=== PATIENT | male | born 1960 | race Caucasian/White ===

== ENCOUNTER 2016-09-24 23:03 | Inpatient (IN) | payer OTHER ==
[2016-09-24] MEDS ORDERED: NITROGLYCERINE 0.4 MG TAB SL STA (23:25)
[2016-09-24] MEDS ORDERED: NITROGLYCERINE 2 % OINTMENT PACK TOP STA (23:25)
[2016-09-24 23:46] LABS: AUTOMATED BASOPHIL 1.1 % (0-2); AUTOMATED EOSINOPHIL 4.2 % (0-5); AUTOMATED LYMPH 39.5 % (17-44); AUTOMATED NEUTROPHIL 43.2 % (45-76)
[2016-09-24 23:51] LABS: BLOOD UREA NITROGEN 16 MG/DL (9-20); CALCIUM 8.8 MG/DL (8.4-10.2); CALCULATED OSMOLALITY 277 MOs/Kg (270-290); CHLORIDE 103 mEq/L (98-107); GLUCOSE 186 MG/DL (70-99); SODIUM LEVEL 141 mEq/L (137-146); TOTAL PROTEIN 6.9 G/DL (6.3-8.2)
--- NOTE | 2016-09-25 00:10 | DIRPT ---
CLINICAL DATA: Subacute onset of generalized chest pain, radiating between the shoulder blades. Shortness of breath. Initial encounter. EXAM: CHEST 2 VIEW COMPARISON: Chest radiograph performed 10/29/2009 FINDINGS: The lungs are well-aerated and clear. There is no evidence of focal opacification, pleural effusion or pneumothorax. The heart is normal in size; the mediastinal contour is within normal limits. No acute osseous abnormalities are seen. IMPRESSION: No acute cardiopulmonary process seen. Electronically Signed By: Juan Ramsay M.D. On: 09/25/2016 00:08
--- NOTE | 2016-09-25 00:25 | EDPRACDOC ---
- General Information Chief Complaint: Chest Pain Stated Complaint: CHEST PAIN Time Seen by Provider: 09/24/16 23:19 Information Source: Patient Mode of Arrival: Car Allergies/Adverse Reactions: Allergies Allergy/AdvReac Type Severity Reaction Status Date / Time No Known Allergies Allergy Verified 09/24/16 23:12 - History of Present Illness Onset: 2 weeks HPI: PT PRESENTS WITH CHEST PAIN OFF AND ON FOR THE LAST FEW WEEKS BUT PERSISTENT TODAY. HAS TAKEN HOME NITROGLYCERIN WITH PARTIAL RELIEF. LAST CARDIAC STENTING WAS IN OCTOBER OF 2015. Chest Pain Location: Reports: Substernal Pain Radiation: Reports: Back Symptoms Occur: Reports: At Rest Cardiac Risk Factors: Reports: Hyperlipidemia, Hypertension Cardiac History of: Reports: [place], Stent Medications within 24 Hours: Reports: Aspirin, Nitro Prehospital Care: Reports: SL NTG, ASA Pain Came On: Reports: Suddenly Pain Status: Present Now Pain Description: Reports: Pressure Pain Severity: Moderate Pain Improves With: Reports: Nitroglycerin, Rest Associated Signs and Symptoms: Reports: SOB. Denies: Palpitations, Nausea, Vomiting ED Past Medical History - History Reviewed Yes Nurses notes reviewed and agree except as marked - Patient Medical History Cardiac History: Reports: Heart Attack (3 stents), Hypercholesterolemia - Social Medical History Lives With: Spouse Lives In: Home EDM Review of Systems - Review of Systems ROS Negative Except as Marked: Yes All systems reviewed and were negative except as marked Constitutional: Fatigue. negative: Fever Respiratory: negative: Shortness of Breath Cardiovascular: Chest Pain Gastrointestinal: negative: Pain, Vomiting - Physical Exam Constitutional: Alert Oriented to: Time, Person, Place Last recorded Vital Signs: Last Vital Signs Temp 98.1 F 09/24/16 23:12 Pulse 78 09/24/16 23:12 Resp 20 09/24/16 23:12 BP 147/67 09/24/16 23:12 Pulse Ox 97 09/24/16 23:12 Oxygen Pulse Oxygen Saturation 97 O2 Device Oxygen Flow Rate Fraction of Inspired Oxygen ( FIO2) - HEENT Head: negative: Deformity, Laceration Eye Exam: negative: Conjunctival Injection, Pale Conjunctiva Oropharynx: negative: Membranes Dry Nose: negative: Congestion, Discharge Neck: negative: Limited ROM - Respiratory/Cardiovascular Respiratory: Normal - CTA. negative: Accessory Muscle Use, Diminished, Tachypnea Cardiovascular: negative: Bradycardia, Tachycardia, Irregular - GI Auscultation: Normal Palpation: Normal Tenderness: Non tender - Integumentary Skin: Warm, Dry. negative: Rash - Neurologic Memory Impaired: Normal Motor Function: Normal Mood Description: Anxious, Appropriate Thought: Coherent Perception: Normal ED Chest Pain Exam - Respiratory/Cardiovascular Chest Palpation: negative: Tender, Reproduces Pain - Action Patient received Aspirin within last 24 hours?: Yes ASA given in the ED: No Aspirin therapy held due to: Other-specify below* (TOOK ASPIRIN AND PLAVIX TODAY ) - Results 09/24/16 23:25 09/24/16 23:25 WBC 4.8 xk/uL (3.8-10.8) 09/24/16 23:25 RBC 4.52 xM/uL (4.70-6.10) L 09/24/16 23:25 Hgb 13.9 g/dL (14.0-18.0) L 09/24/16 23:25 Hct 41.1 % (42-52) L 09/24/16 23:25 MCV 91 fL (80-94) 09/24/16 23:25 MCH 30.7 pg (27-32) 09/24/16 23:25 MCHC 33.8 g/dl (33-36) 09/24/16 23:25 RDW 14.2 % (11.5-14.5) 09/24/16 23:25 Plt Count 146 xk/uL (130-400) 09/24/16 23:25 MPV 8.0 fL (7.4-10.4) 09/24/16 23:25 Neut % (Auto) 43.2 % (45-76) L 09/24/16 23:25 Lymph % (Auto) 39.5 % (17-44) 09/24/16 23:25 Bond % (Auto) 12.0 % (3-10) H 09/24/16 23:25 Eos % (Auto) 4.2 % (0-5) 09/24/16 23:25 Baso % (Auto) 1.1 % (0-2) 09/24/16 23:25 Absolute Neuts (auto) 2.06 xk/uL (1.7-8.2) 09/24/16 23:25 Absolute Lymphs (auto) 1.87 xk/uL (0.65-4.75) 09/24/16 23:25 PT 10.0 SEC (9.2-11.2) 09/24/16 23:25 INR 1.0 09/24/16 23:25 APTT 23.0 SEC (22-35) 09/24/16 23:25 Sodium 141 mEq/L (137-146) 09/24/16 23:25 Potassium 3.8 mEq/L (3.5-5.1) 09/24/16 23:25 Chloride 103 mEq/L (98-107) 09/24/16 23:25 Carbon Dioxide 27 mMOL/L (22-33) 09/24/16 23:25 Anion Gap 15 mEq/L (8-16) 09/24/16 23:25 BUN 16 MG/DL (9-20) 09/24/16 23:25 Creatinine 0.90 MG/DL (0.66-1.25) 09/24/16 23:25 Estimated GFR (MDRD) > 60 mL/min (>=60) 09/24/16 23:25 Glucose 186 MG/DL (70-99) H 09/24/16 23:25 Calculated Osmolality 277 MOs/Kg (270-290) 09/24/16 23:25 Calcium 8.8 MG/DL (8.4-10.2) 09/24/16 23:25 Total Bilirubin 0.4 MG/DL (0.2-1.3) 09/24/16 23:25 AST 22 IU/L (17-59) 09/24/16 23:25 ALT 33 IU/L (21-72) 09/24/16 23:25 Alkaline Phosphatase 91 IU/L (38-126) 09/24/16 23:25 Troponin I 0.06 ng/mL (<.04) 09/24/16 23:25 Total Protein 6.9 G/DL (6.3-8.2) 09/24/16 23:25 Albumin 4.0 G/DL (3.5-5.0) 09/24/16 23:25 Lab Results 09/24/16 09/24/16 09/24/16 23:25 23:25 23:25 WBC 4.8 RBC 4.52 L Hgb 13.9 L Hct 41.1 L MCV 91 MCH 30.7 MCHC 33.8 RDW 14.2 Plt Count 146 MPV 8.0 Neut % (Auto) 43.2 L Lymph % (Auto) 39.5 Bond % (Auto) 12.0 H Eos % (Auto) 4.2 Baso % (Auto) 1.1 Absolute Neuts (auto) 2.06 Absolute Lymphs (auto) 1.87 PT 10.0 INR 1.0 APTT 23.0 Sodium 141 Potassium 3.8 Chloride 103 Carbon Dioxide 27 Anion Gap 15 BUN 16 Creatinine 0.90 Estimated GFR (MDRD) > 60 Glucose 186 H Calculated Osmolality 277 Calcium 8.8 Total Bilirubin 0.4 AST 22 ALT 33 Alkaline Phosphatase 91 Troponin I 0.06 Total Protein 6.9 Albumin 4.0 Laboratory Results - last 24 hr 09/24/16 09/24/16 09/24/16 23:25 23:25 23:25 WBC 4.8 RBC 4.52 L Hgb 13.9 L Hct 41.1 L MCV 91 MCH 30.7 MCHC 33.8 RDW 14.2 Plt Count 146 MPV 8.0 Neut % (Auto) 43.2 L Lymph % (Auto) 39.5 Bond % (Auto) 12.0 H Eos % (Auto) 4.2 Baso % (Auto) 1.1 Absolute Neuts (auto) 2.06 Absolute Lymphs (auto) 1.87 PT 10.0 INR 1.0 APTT 23.0 Sodium 141 Potassium 3.8 Chloride 103 Carbon Dioxide 27 Anion Gap 15 BUN 16 Creatinine 0.90 Estimated GFR (MDRD) > 60 Glucose 186 H Calculated Osmolality 277 Calcium 8.8 Total Bilirubin 0.4 AST 22 ALT 33 Alkaline Phosphatase 91 Troponin I 0.06 Total Protein 6.9 Albumin 4.0 Laboratory Results 09/24/16 23:25 09/24/16 23:25 - EKG EKG #1 EKG Time: 23:09 -: Yes EKG interpreted by me Rate: bpm: 77 Rhythm: NSR Block: None ST: Nonsp - Departure Yes I personally saw and evaluated the patient. Disposition: Admit IP To This Hospital Condition: Stable Final Diagnosis: Chest pain Instructions: Chest Pain (ED), Chest Wall Pain Decision to Admit Time: 00:35 Decision to admit date: 09/25/16 Decision to admit: from ED
[2016-09-25] MEDS ORDERED: NITROGLYCERINE 0.4 MG TAB SL PRN (00:53)
--- NOTE | 2016-09-25 00:56 | HISTPHYS ---
- Chief Complaint chest pain - History of Present Illness PRIMARY CARE PROVIDER: Dr. Kaleigh Gandara at [facility] HPI: The patient is a 55 yo man with coronary artery disease who presents with chest pain. Although he has had chest pain intermittently over the last 2 weeks, he had worsening pain. He has requred more and more nitroglycerin. He has noticed shortness of breath and chest pain with exertion, and especially with climbing stairs. The most recent episode of chest pain a few hours before arrival actually started when he was sitting. Onset: Has intermittent chest pain x 2 weeks. Today the chest pain would not go away. Duration: intermittent. Location: substernal. Radiation: to shoulders and back. Character: Up to 8/10 at times. Burning sensation. Tightness. Alleviated by: Nothing. Exacerbated by: Exertion. Associated Symptoms: Shortness of breath. Diaphoresis occasionally. Previously he would have some relief with burping but not for the more recent chest pain. Chronic cough. No wheezing. Shortness of breath. Chest pain and palpitations. Sometimes his heart "does summersaults"; when he had that sensation, he would take his pulse and during that time his pulse would stop, and he is concerned about this. No headache or focal weakness. Except: occasional weakness and heaviness in his arms when he exerts himself; has happened a few times in the last few months. He states that when he had his heart attack previously, that is how his arms felt. Treatments: none at home except usual medications. Nitroglycerin relieved some episodes of chest pain but not the most recent one. He has had to take nitroglycerin more frequently and for more times over the last week than he has ever used it before. PMH: [place] in 2009. Cardiac catheterization: 2009 had 2 stents at [place]. 10/2015 had a 3rd stent at the [facility]. Has not been told he has hypertension, but does take blood pressure medications for his heart. Hyperlipidemia Has some pre-diabetes but has been improving Smoker: 1 ppd. Started 11 yo. - Medical History Cardiac History: Reports: Coronary Artery Disease (first diagnosed at 36 yo), Heart Attack (2009. 3 stents), Cardiac Catheterization (2009 had 2 stents at [place]. 10/2015 stent#3 at [facility]), Hypercholesterolemia Respiratory History: Reports: COPD (moderate. Uses inhalers.) GI/ History: Reports: Kidney Stones Musculoskeletal History: Reports: Arthritis - Surgical History Reports: Cardiac Catheterization (2009 had 2 stents at [place]. 10/2015 stent# 3 at [facility]), Other (Skin cancer removal) - Medictions/Allergies Allergies No Known Allergies Allergy (Verified 09/24/16 23:12) Current Medication List: Reviewed - Family History Reports: Diabetes (Grandmother), Cancer (MGM: pancreatic cancer. Maternal great uncle colon cancer.), Cardiac Disorders (Father: first [place]@37yo, @59yo. PGF : [place]. Brother: [place] early 40s.), Respiratory Disorders (Mother: COPD, smoker.) - Social History Travel Outside of US in the Last 3 Months?: No Smoking Status: Heavy tobacco smoker (5 or more cigarettes/day or daily pipe/ cigar) (1 ppd. Started age 11yo.) Social History: Denies: Alcohol Use, Substance Use Disorder - Review of Systems GENERAL: No Fever, chills, or diaphoresis. Positive for fatigue/malaise. HEENT: No ear pain or discharge. No nasal discharge or bleeding. No throat pain or swelling. No eye pain or eye redness. RESPIRATORY: Chronic cough. No wheezing. Shortness of breath. CARDIOVASCULAR: Chest pain and palpitations. GI: No abdominal pain, nausea, vomiting, diarrhea, constipation, or bloody stool. NEUROLOGICAL: No headache or focal weakness. Except: occasional weakness and heaviness in his arms when he exerts himself; has happened a few times in the last few months. He states that when he had his heart attack previously, that is how his arms felt. INTEGUMENT: no rashes, itching, or lesions. LYMPHATIC SYSTEM: no lymph node swelling or pain. MUSCULOSKELETAL: no pain or joint swelling. GENITOURINARY: No dysuria or hematuria. ENDOCRINE: Chronic polyuria but no polydipsia. HEME: No chronic anemia, bleeding. Positive for easy bruising. - Physical Exam Vital Signs: Initial Vitals Temperature 98.1 F 09/24/16 23:12 Pulse Rate 78 09/24/16 23:12 Respiratory Rate 20 09/24/16 23:12 Blood Pressure 147/67 09/24/16 23:12 Pulse Oxygen Saturation 97 09/24/16 23:12 Weight: 95.2 kg Height: 6' BMI: 28.5 - Other Exam Other Exam Findings: GENERAL: Ill-appearing, well nourished, no acute distress. HEENT: Normocephalic, atraumatic; pupils equal and round. Nares patent, without discharge or bleeding. No oropharyngeal lesions or erythema. Mucous membranes are dry. NECK: is supple, no masses, trachea midline. RESPIRATORY: Clear to auscultation bilaterally. Chest wall movements are symmetric. No use of accessory muscles to breathe. Minimal bilateral wheezing. No rales, rhonchi. CARDIOVASCULAR: Normal S1, S2. No murmurs, rubs, or gallops. PMI non-displaced. Carotids: no carotid bruits. No bradycardia or tachycardia. DP pulses 2+ bilaterally. GI: soft, nontender, non-distended, normal active bowel sounds. No hepatosplenomegaly. INTEGUMENT: Clean, dry, and intact. No rashes. No lesions. MUSCULOSKELETAL: Moving all extremities. No cyanosis. No clubbing. Edema: none bilaterally. NEUROLOGICAL: Cranial nerves 2-12 grossly intact. Motor 5/5 throughout. Reflexes : 2+ bilaterally. Babinski: toes downgoing bilaterally. Intact Finger to nose. Sensory grossly intact to light touch. Intact rapid alternating movements bilaterally. No pronator drift. PSYCHIATRIC: Fully oriented. Normal and appropriate affect. LYMPHATIC: No cervical lymphadenopathy. No supraclavicular lymphadenopathy. - Lab Results Laboratory Results - last 24 hr 09/24/16 09/24/16 09/24/16 23:25 23:25 23:25 WBC 4.8 RBC 4.52 L Hgb 13.9 L Hct 41.1 L MCV 91 MCH 30.7 MCHC 33.8 RDW 14.2 Plt Count 146 MPV 8.0 Neut % (Auto) 43.2 L Lymph % (Auto) 39.5 [place] % (Auto) 12.0 H Eos % (Auto) 4.2 Baso % (Auto) 1.1 Absolute Neuts (auto) 2.06 Absolute Lymphs (auto) 1.87 PT 10.0 INR 1.0 APTT 23.0 Sodium 141 Potassium 3.8 Chloride 103 Carbon Dioxide 27 Anion Gap 15 BUN 16 Creatinine 0.90 Estimated GFR (MDRD) > 60 Glucose 186 H Calculated Osmolality 277 Calcium 8.8 Total Bilirubin 0.4 AST 22 ALT 33 Alkaline Phosphatase 91 Troponin I 0.06 Total Protein 6.9 Albumin 4.0 - Diagnostic Findings DIAGNOSTIC DATA: EK bpm. normal sinus rhythm. Nonspecific ST abnormality. Minimal ST depression in lead V3. Reviewed EKG personally. IMAGING: Chest x-ray, viewed personally: EXAM: CHEST 2 VIEW COMPARISON: Chest radiograph performed 10/29/2009 FINDINGS: The lungs are well-aerated and clear. There is no evidence of focal opacification, pleural effusion or pneumothorax. The heart is normal in size; the mediastinal contour is within normal limits. No acute osseous abnormalities are seen. IMPRESSION: No acute cardiopulmonary process seen. - Assessment (1) Chest pain R07.9 - CHEST PAIN, UNSPECIFIED Acute Present on Admission: Yes Has known coronary artery disease with 3 stents, most recent stent placed 2015 at [facility]. Plan: Obtain cardiac enzymes x 3. Place patient on telemetry. Give patient oxygen, aspirin. Give nitroglycerin, and morphine as needed for chest pain. Give statin. Stress test has been ordered for the morning. Patient has been advised, if the stress test is negative, to follow up with the primary care provider for evaluation of other potential causes of the chest pain. (2) Palpitations R00.2 - PALPITATIONS Acute Present on Admission: Yes Plan: Telemetry. (3) Shortness of breath R06.02 - SHORTNESS OF BREATH Acute Present on Admission: Yes O2 by NC (4) Tobacco abuse Z72.0 - TOBACCO USE Acute Present on Admission: Yes Counseled to quit. Patient reported he had a prescription for Chantix and was planning to start the Chantix once he gets home. Case Care Discussed with: Patient, Nursing Staff
[2016-09-25] MEDS ORDERED: TEMAZEPAM 15 MG CAP PO PRN (02:39)
[2016-09-25] MEDS ORDERED: GUAIFEN 100 MG-DEXTROMETH 10 MG PER 5 ML PO PRN (02:39)
[2016-09-25] MEDS ORDERED: ACETAMINOPHEN 325 MG SUPP PR PRN (02:39)
[2016-09-25] MEDS ORDERED: ACETAMINOPHEN 325 MG/TAB TABLET PO PRN (02:39)
[2016-09-25] MEDS ORDERED: Docusate Sodium 100 MG CAP PO PRN (02:39)
[2016-09-25] MEDS ORDERED: SENNA CONCENTRATE TAB PO PRN (02:39)
[2016-09-25] MEDS ORDERED: MORPHINE 2 MG/ML INJECTION IV PRN (02:39)
[2016-09-25] MEDS ORDERED: ONDANSETRON HCL 4 MG/2 ML VIAL IV PRN (02:39)
[2016-09-25] MEDS ORDERED: BENZONATATE 100 MG PERLES PO PRN (02:39)
[2016-09-25] MEDS ORDERED: SIMETHICONE 80 MG TAB PO PRN (02:39)
[2016-09-25] MEDS ORDERED: PROMETHAZINE 25 MG/ML VIAL IV PRN (02:39)
[2016-09-25] MEDS ORDERED: BISACODYL 5 MG TAB PO PRN (02:39)
[2016-09-25] MEDS ORDERED: Pharmacy Order Set Alert SCH (03:00)
[2016-09-25] MEDS ORDERED: ENOXAPARIN 40 MG/0.4 ML PFS SQ SCH (03:00)
[2016-09-25] MEDS ORDERED: Vaccine Screening Complete SCH (04:00)
[2016-09-25 07:30] LABS: MPV 7.6 fL (7.4-10.4)
[2016-09-25 07:36] LABS: BLOOD UREA NITROGEN 13 MG/DL (9-20); CALCIUM 8.6 MG/DL (8.4-10.2); CALCULATED OSMOLALITY 271 MOs/Kg (270-290); CHLORIDE 106 mEq/L (98-107); GLUCOSE 107 MG/DL (70-99); LDL (calc.) 83.6 MG/DL (<100); SODIUM LEVEL 141 mEq/L (137-146); VLDL (calc.) 15.4 MG/DL (5-40)
[2016-09-25] MEDS ORDERED: ERGOCALCIFEROL 2000 UNIT PO SCH (09:00)
[2016-09-25] MEDS: ATORVASTATIN 40 MG TAB PO SCH (10:06)
[2016-09-25] MEDS: ASPIRIN (CHEWABLE) 81 MG TAB PO SCH (10:06)
[2016-09-25] MEDS: METOPROLOL TARTRATE 25 MG TAB PO SCH ×2 (10:07→22:34)
[2016-09-25] MEDS: CLOPIDOGREL 75 MG TAB PO SCH (10:10)
[2016-09-25] MEDS: CHOLECALCIFEROL 1000 UNITS TAB PO SCH (10:11)
[2016-09-25] MEDS: LISINOPRIL 2.5 MG TAB PO SCH (10:11)
--- NOTE | 2016-09-25 13:59 | PCM.CARDCO ---
Consultation Date: 09/25/16 Requesting Physician: Curly Baldwin (unst angina) Consulting Doctor: Aaron Malcolm Travel Outside of US in the Last 3 Months?: No Consultation Note: History of Present Illness: Pt is a 55 yo WM, has hx of CAD going back to stent of RCA and LAD in 2009 at [facility], subsequently established care at [facility], where he underwent a second coronary stent procedure in 10/2015 for progressive angina, with another Xience SHAWN placed for restenosis at edge of prior stent. He is followed there for CArdiology primarily by FRANCISCA Hoyos He was free of sx until June , when he began having occasional episodes of chest discomfort, typically onset in evening after work, once during exertion at work, and has taken 6-10 sl NTG last couple months, always with prompt relief. Last evening, had more severe/more prolonged chest discomfort unrelieved by sl NTG x2, prompting his eval here and admission. Started on topical nitrate and Lovenox. He has had some exertional dyspnea in recent weeks, and occasional palpitations perceived as "somersaults". No sustained rapid heart action. Pt indicates recent chest discomfort is just like prior anginal sx in past. Past Medical History: CAD, with stents to LAD and RCA, most recent in Oct 2015, as noted. Allergies No Known Allergies Allergy (Verified 09/24/16 23:12) Home Medications Albuterol Sulfate MDI [Proventil HFA] 2 puff PO QID 09/25/16 Aspirin 81 mg PO DAILY 09/25/16 Atorvastatin Calcium 40 mg PO DAILY 09/25/16 Clopidogrel Bisulfate [Plavix] 75 mg PO DAILY 09/25/16 Ergocalciferol (Vitamin D2) [Vitamin D] 2,000 unit PO DAILY 09/25/16 Lisinopril 2.5 mg PO DAILY 09/25/16 Metoprolol Tartrate 25 mg PO BID 09/25/16 Nitroglycerin Sublingual Tab [NTG (NitroStat Sublingual Tab)] 0.4 mg SL Q10MIN PRN 09/25/16 Family History: + for CAD Social History: Traveled outside the [place] in the last 3 months? No \\Heavy tobacco smoker (5 or more cigarettes/day or daily pipe/cigar) Works for [employer], involves lifting. Re-, 2 kids, 3 stepchildren Review of Systems: 10- system ROS, nothing in addition. No TIA./CVA, melena, hematochezia. Physical Examination: Temperature: 98.0 F (09/25/16 12:45)HR: 80 (09/25/16 12:45)RR: 20 (09/25/16 12: 45)BP: 110/64 (09/25/16 12:45) SAT:98 (09/25/16 12:45) [] Physical Exam GEN: WDWN, in NAD VS: as above HEENT: neck veins flat, carotids normal, no bruit CHEST: clear, non-tender COR: RR, normal s1,s2, no murmur, gallop, rub ABD: soft, non-tender, no organomegaly or mass EXTREM: pulses symmetrically wnl, no edema SKIN: warm, dry NEURO: normal mental status, no focal motor deficit. LAB/DI: [] Laboratory Tests 09/24/16 09/24/16 09/24/16 23:25 23:25 23:25 WBC 4.8 Hgb 13.9 L Hct 41.1 L Plt Count 146 INR 1.0 Sodium Potassium Chloride Carbon Dioxide BUN Creatinine Estimated GFR (MDRD) AST 22 ALT 33 Alkaline Phosphatase 91 Troponin I 0.06 Triglycerides Cholesterol LDL Cholesterol, Calc HDL Cholesterol 09/25/16 09/25/16 09/25/16 03:28 06:49 06:49 WBC Hgb Hct Plt Count INR Sodium 141 Potassium 4.0 Chloride 106 Carbon Dioxide 26 BUN 13 Creatinine 0.80 Estimated GFR (MDRD) > 60 AST ALT Alkaline Phosphatase Troponin I 0.08 0.09 Triglycerides 77 Cholesterol 134 LDL Cholesterol, Calc 83.6 HDL Cholesterol 35.0 L EKG on adm: NSR, minor non-specific T wave abnormality today: NSR, inferior T inversion, similar to Oct 2015 IMPRESSION: unstable angina, with resting ST-T changes. - Recommendations REC: Rx for unstable angina, full dose Lovenox for now, con't ASA/Plavix, metoprolol - agree with add of topical nitrates - agree with Dr. Baldwin that definitive coronary angiographic eval is appropriate, would not trust stress test even if negative. For financial reasons, [facility] is preferred to carry this out. Suggest we contact OR in AM, see if we can arrange prompt angio re-eval there. Transfer if possible. If pt tolerates ambulation without chest discomfort, could be released home with add of long-acting nitrates, off work pending cath eval.
[2016-09-25] MEDS: NITROGLYCERINE TOP SCH (14:37)
[2016-09-25] MEDS: ENOXAPARIN 100 MG PFS SQ SCH (17:17)
[2016-09-26 04:45] VITALS: BMI 26.9
[2016-09-26 07:59] VITALS: TEMP 98.1
[2016-09-26] MEDS ORDERED: FLU VACCINE (Afluria) 0.5 ML DOSE IM ONE (08:00)
[2016-09-26] MEDS ORDERED: PNEUMOCOCCAL 0.5 ML VIAL IM ONE (08:00)
[2016-09-26] MEDS: ATORVASTATIN 40 MG TAB PO SCH (08:19)
[2016-09-26] MEDS: ASPIRIN (CHEWABLE) 81 MG TAB PO SCH (08:19)
[2016-09-26] MEDS: CHOLECALCIFEROL 1000 UNITS TAB PO SCH (08:19)
[2016-09-26] MEDS: CLOPIDOGREL 75 MG TAB PO SCH (08:19)
[2016-09-26] MEDS: LISINOPRIL 2.5 MG TAB PO SCH (08:20)
[2016-09-26] MEDS: METOPROLOL TARTRATE 25 MG TAB PO SCH (08:20)
[2016-09-26] MEDS: NITROGLYCERINE TOP SCH (08:21)
[2016-09-26] MEDS: ENOXAPARIN 100 MG PFS SQ SCH (08:28)
--- NOTE | 2016-09-26 08:59 | PCM.CARD ---
- Subjective Reason for visit: f/u unstable angina Subj: Pt experienced recurrent 1-2/10 discomfort last evening after ambulating in [place], same character as recent episodes, promptly relieved by rest and sl NTG. No recurrences since, no rest pain. No new dyspnea, nausea, palpitations. Contacted [facility], informed that [facility] ( [phone] has to put through order. Pt is followed primarily there by Dr. Kaleigh Eid in [facility] (ext [phone]). Cardiology ext is [phone], stress lab [phone]. [facility] to return my call. ADDENDUM: Bianka ESPINOSA from [facility] returned call, indicated wait time for cath at [facility] would be an unacceptable 6 weeks given instability of pt's symptoms. Suggested transfer to for cath/poss PCI, care to be covered by [facility] as emergency. Vital Signs: Last Vital Signs Temp 98.1 F 09/26/16 07:56 Pulse 66 09/26/16 08:20 Resp 18 09/26/16 07:56 BP 126/61 09/26/16 07:56 Pulse Ox 91 09/26/16 07:56 PE: Physical Exam GEN: WDWN, in NAD VS: as above HEENT: no JVD, carotids normal CHEST: clear COR: RR, no murmur gallop or rub ABD: no distention EXTREM: pulses normal, no edema SKIN: warm, dry NEURO: normal mental status, no focal motor deficit Lab/DI Results Reviewed: Laboratory Tests 09/24/16 09/25/16 09/25/16 23:25 03:28 06:49 Sodium Potassium BUN Creatinine Troponin I 0.06 0.08 0.09 09/25/16 06:49 Sodium 141 Potassium 4.0 BUN 13 Creatinine 0.80 Troponin I EKG this AM: NSR, tiny inferior Qs, T inversion inferiorly as in Sep 2015, new since 09/24/16 adm tracing tele: NSR, no dynamic ST shifts. IMPRESSION: unstable (accelerating) angina with resting ST-T changes. - Plan PLAN: coronary angiographic re-eval is indicated EVELIN, not available at [facility] Will transfer to [facility] today for urgent cath/possible PCI. Pt understands risks of [place]/arrest/CVA 09/999, vessel damage or bleeding 2% Anticipate outpt f/u Bianka ESPINOSA at [facility], with us in [place].
[2016-09-26 11:16] VITALS: BP 112/67; PULSE 60
--- NOTE | 2016-09-26 14:18 | PCM.DCS92 ---
- Final/Secondary Discharge Diagnosis (1) Acute coronary syndrome Acute I24.9 - ACUTE ISCHEMIC HEART DISEASE, UNSPECIFIED Present on Admission: Yes Comment: Very worrisome history. Attempted to transfer to the [facility] but they state that they would not be able except for [address] Malcolm has arranged for transfer to [facility] for urgent catheterization (2) Palpitations Acute R00.2 - PALPITATIONS Present on Admission: Yes Comment: Monitor on telemetry and continue medications. (3) Shortness of breath Acute R06.02 - SHORTNESS OF BREATH Present on Admission: Yes Comment: Oxygen as needed. Likely related to cardiac issues (4) Tobacco abuse Acute Z72.0 - TOBACCO USE Present on Admission: Yes Comment: Stressed smoking cessation. Discharge Disposition: Home Discharge Condition: Stable Cognitive Discharge Status: Unimpaired Fuctional Discharge Status: Independent Physician Follow up/Referrals: None,No Provider [Family Provider] - One Week O2 Device: Nasal Cannula Oxygen to be used after Discharge: Continuous Diet at Discharge: Heart Healthy Activity: As Tolerated Call Office For: Worsening Symptoms - DC Summary Notes Hospital Course Note:: Discharge summary on patient named AIMEE AHN admitted to [facility] on 09/25/16 by Drew Leon MD. Date of discharge is []. Mr. Ahn is a pleasant 55-year-old white male with history of coronary artery disease who presented to the hospital with 2-3 days of increasing dyspnea on exertion and chest tightness. The symptoms were identical to previous cardiac related pains that he has had. He has had 3 stents placed over the years most recently a stent placed approximately a year ago. He has had some of these done at [place] and some at the [facility]. Given his symptoms and garcia zone troponins we had Cardiology see him in consultation and they recommended heart catheterization. We attempted to transfer him to the [facility] at the patient's request however they stated would be approximately 6 weeks before they would be able to perform heart catheterization. Given the urgent nature of this we have gone ahead and arrange for him to be transferred to [facility]. He will undergo urgent catheterization add and further management will be per [facility]. Total Time: 40 minutes - Transfer to Other Facility Transfer Form Completed: Yes - Physical Exam Vital Signs: Last Vital Signs Temp 98.1 F 09/26/16 11:15 Pulse 60 09/26/16 11:15 Resp 16 09/26/16 11:15 BP 112/67 09/26/16 11:15 Pulse Ox 93 09/26/16 11:15 Oxygen Pulse Oxygen Saturation 93 O2 Device Nasal Cannula Oxygen Flow Rate 1 Fraction of Inspired Oxygen ( FIO2) Constitutional: No apparent distress, Alert, Well nourished, Well appearing Oriented to: Time, Person, Place - HEENT Head: Normal. negative: Deformity, Laceration Eye: Normal. negative: Conjunctival Injection, Pale Conjunctiva Oropharynx: Normal. negative: Membranes Dry Nose: negative: Congestion, Discharge - Respiratory/Cardiovascular Respiratory: Normal - CTA. negative: Accessory Muscle Use, Diminished, Tachypnea Cardiovascular: Normal. negative: Bradycardia, Tachycardia, Irregular - GI Auscultation: Normal Palpation: Normal Tenderness: Non tender - Musculoskeletal Back: Normal Extremities: Normal - Integumentary Skin: Warm, Dry. negative: Rash - Neurologic Memory Impaired: Normal Motor Function: Normal Cranial Nerve: Normal Cerebellar: Normal Mood Description: Anxious, Appropriate Thought: Coherent Perception: Normal
--- NOTE | 2016-09-26 16:40 | CAPUEKG ---
[place], [place] Test Date: 2016-09-26 Pat Name: AIMEE AHN Department: Room: 448 Gender: Male [employer]visor [employer]: : Requested By: Order Number: Reading MD: Aaron Malcolm Measurements Intervals [place] Rate: 62 P: 55 MN: 124 QRS: 67 QRSD: 108 T: -21 QT: 434 QTc: 440 Interpretive Statements Normal sinus rhythm Cannot rule out Inferior infarct, age undetermined inferior T inversion suggests ischemia, unchanged from yesterday. Abnormal ECG Electronically Signed On 09-26-16 16:39:51 EST by Aaron Malcolm <[email or web address]> [id number]
--- NOTE | 2016-09-26 16:44 | CAPUEKG ---
[place], [place] Test Date: 2016-09-25 Pat Name: AIMEE AHN Department: Room: 448 Gender: Male [employer]: : Requested By: Order Number: Reading MD: Aaron Malcolm Measurements Intervals [place] Rate: 58 P: 65 NH: 162 QRS: 60 QRSD: 108 T: -18 QT: 444 QTc: 435 Interpretive Statements Sinus bradycardia with sinus arrhythmia Cannot rule out Inferior infarct, age undetermined Inferior T inversion, as in Sep 2015 but NEW since Sep tracing yesterday, suggests ischemia. Abnormal ECG Electronically Signed On 09-26-16 16:43:59 EST by Aaron Malcolm <[id number]> [id number]
[2016-09-27] MEDS ORDERED: PNEUMOCOCCAL 0.5 ML VIAL IM ONE (08:00)
[2016-09-27] MEDS ORDERED: FLU VACCINE (Afluria) 0.5 ML DOSE IM ONE (08:00)
== END 2016-09-26 11:10 | disposition short-term general hospital (02) | DRG 311 ==
LOC: ED 23:03 → OBSVTOIN 09-25 00:52 → PCU 09-25 00:52 → ED 09-25 01:10
PROVIDERS: ADMIT Internal Medicine; ATTEND Hospitalist
DX: I24.9 Acute ischemic heart disease, unspecified (principal); I10 Essential (primary) hypertension; I25.10 Atherosclerotic heart disease of native coronary artery without angina pectoris; I25.2 Old myocardial infarction; Z95.5 Presence of coronary angioplasty implant and graft; Z71.6 Tobacco abuse counseling; F17.210 Nicotine dependence, cigarettes, uncomplicated; R00.2 Palpitations; J44.9 Chronic obstructive pulmonary disease, unspecified; R06.2 Wheezing; Z79.82 Long term (current) use of aspirin; E78.5 Hyperlipidemia, unspecified; Z79.899 Other long term (current) drug therapy
CPT/HCPCS: 36415; 71020; 80048; 80053; 80061; 84484; 85025; 85027; 85610; 85730; 90656; 90732; 93005; 96372; 99285; 99406; J1650; J3490